=== PATIENT | female | born 1950 | race Caucasian/White ===

== ENCOUNTER 2017-02-18 13:06 | Emergency (ER) | payer OTHER ==
[~2017-02-18 13:06] MED LIST: ALLEGRA PO; AMLODIPINE BESYL5 MG PO; AMLODIPINE PO; ASPIRIN PO; ASPIRIN81 M2 PO; ASTELIN137 MCG INH; AUGMENTIN875 MG PO; CALCIUM + D 6001 TA1 PO; CALCIUM1 TAB.CHEW PO; CIPRO PO; COUMADIN; COUMADIN PO; COUMADIN1 MG PO; COUMADIN3 MG PO; DICYCLOMINE HCL20 MG PO; EQUATE ALLERGY PO; FISH OIL 1,0001 CAP; FISH OIL 1,0001 CAP PO; FLAGYL PO; FLEXERIL PO; FLEXERIL10 MG; FLONASE16 GM; LOMOTIL WHITE2.5 M1 PO; METOCLOPRAMI10 MG/ML PO; MILK OF MAGNESIA PO; NAPROXEN PO; NIACIN ER1000 MG PO; NIACIN PO; NIASPAN PO; NORVASC PO; POSTURE600 MG; POSTURE600 MG PO; PRAVASTATIN SOD40 MG PO; PREDNISONE PO; PRILOSEC; PROBIOTIC1 EAC1 PO; REGLAN10 MG PO; RHINOCORT AQUA8.6 GM; TUSSIONEX PO; VISTARIL PO; VOLTAREN75 MG PO; XAREL PO; ZOCOR PO; ZOFRAN SL; [UNRECOGNIZED DRUG - OTHER] PO; [UNRECOGNIZED DRUG - REMARK] PO
[2017-02-18 13:18] LABS: INFLUENZA A NEG (NEG); INFLUENZA B NEG (NEG)
== END 2017-02-18 13:55 | disposition home or self-care (01) ==
LOC: CFTX 13:06
PROVIDERS: Nurse Practitioner
DX: J06.9 Acute upper respiratory infection, unspecified (principal); I10 Essential (primary) hypertension; Z90.710 Acquired absence of both cervix and uterus
CPT/HCPCS: 87651; 87804; 99282

== ENCOUNTER 2017-05-30 09:20 | Emergency (ER) | payer OTHER ==
--- NOTE | ~2017-05-30 | CR141 ---
[facility]. [facility] A Service of [facility] RADIOLOGY TEXT RESULTS PATIENT: HARSHIL SHEARER LOCATION: SED : 50 UNIT #: [id number] AGE: [address]: Blu Bernal MD SEX: F ORDER DR: [id number] [address] [address] [id number] E MR#: [id number] Acc #: [id number] NAME: HARSHIL SHEARER : 1950 SEX: F STUDY DATE/TIME: 05/30/2017 9:42 UNIT: SED ROOM: STUDY DESCRIPTION: CR Hand Min 3 Views Lt Attending Physician: Blu Bernal M.D. Ordering Physician: Blu Bernal M.D. Primary Care Physician: Caren Sheppard M.D. MEDICAL IMAGING REPORT This report is preliminary unless electronic signature is present. EXAM Three views of the left hand. INDICATIONS Left hand pain and swelling after slamming hand in a door prior to arrival FINDINGS No acute fracture or subluxation is seen. No aggressive osseous abnormalities are noted. 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 IMPRESSION No acute fracture or subluxation identified. Dictated by... Kelly Moon M.D. THIS IS AN ELECTRONICALLY VERIFIED REPORT Kelly Moon M.D. at 06/01/2017 7:27 AM DENAE/fam TD: 05/30/2017 22:54 JOB #: [id number] MEDICAL IMAGING REPORT Page 1 of 1
[2017-05-30] MEDS ORDERED: EQUATE ALLERGY MED (09:35)
[2017-05-30] MEDS ORDERED: CALCIUM500 M1 (09:35)
[2017-05-30] MEDS ORDERED: ASPIRIN81 MG PO (09:35)
[2017-05-30] MEDS ORDERED: FISH OIL 1,0001 EAC1 PO (09:35)
== END 2017-05-30 10:31 | disposition home or self-care (01) ==
LOC: SED 09:20
DX: S60.222A Contusion of left hand, initial encounter (principal); K21.9 Gastro-esophageal reflux disease without esophagitis; Z88.8 Allergy status to other drugs, medicaments and biological substances; Z79.82 Long term (current) use of aspirin; W22.8XXA Striking against or struck by other objects, initial encounter; Y92.099 Unspecified place in other non-institutional residence as the place of occurrence of the external cause
CPT/HCPCS: 73130; 99283